=== PATIENT | male | born 1995 | race Hispanic/Latino ===

== ENCOUNTER 2020-01-17 17:52 | Emergency (ER) | payer OTHER, SELFPAY ==
[2020-01-17 18:06] VITALS: BP 117/70; PULSE 82; RESP 15; TEMP 36.6; O2SAT 95; BMI 21.6
--- NOTE | 2020-01-17 18:19 | ED.RECABL ---
HPI - Recheck/Abnormal Lab/Rx General Chief Complaint: Recheck/Abnormal Lab/Rx Stated Complaint: states having medication withdrawls Time Seen by Provider: 01/17/20 18:19 Source: patient Mode of arrival: Ambulatory Limitations: no limitations History of Present Illness HPI narrative: 24-year-old male who is currently on benztropine. States that he ran out of his medication 3 days ago. Tried to contact his provider today for refill however was unable to. Is here for a medication refill. Related Data Previous Rx's Medication Instructions Recorded benztropine 4 mg PO DAILY #30 tab 01/17/20 Allergies Allergy/AdvReac Type Severity Reaction Status Date / Time No Known Drug Allergies Allergy Verified 01/17/20 18:06 Review of Systems Gastrointestinal Gastrointestinal: Denies vomiting Integumentary/Breasts Skin/Breast: Denies rash Psychiatric Psychiatric: Denies homicidal ideation and Denies suicidal ideation Patient History Surgical History No pertinent past surgical history (Acute) Social History Smoking Status: Current every day smoker Smoking Status: Current every day smoker alcohol intake frequency: holidays/special occasions only Substance Use Type: does not use Exam Initial Vital Signs Initial Vital Signs: Vital Signs Temperature 97.9 F 01/17/20 18:06 Pulse Rate 82 01/17/20 18:06 Respiratory Rate 15 01/17/20 18:06 Blood Pressure 117/70 01/17/20 18:06 Pulse Oximetry 95 01/17/20 18:06 Const General: cooperative and comfortable Limitations: mental status not altered Resp Effort & Inspection: normal respiratory effort Skin Lesions: no lesions Rashes: no rashes Neuro General: alert and awake Extrem General: normal to inspection Psych Appearance: grossly normal and well kempt Thought Content: suicidality Course Vital Signs Vital signs: Vital Signs - 8 hr 01/17/20 18:06 Temperature 97.9 F Pulse Rate 82 Respiratory Rate 15 Blood Pressure 117/70 Pulse Oximetry 95 MDM - Recheck/Abnormal Lab/Rx MDM Narrative Medical decision making narrative: Will refill patient's medications. Discharge Plan Departure Patient Disposition: Home Clinical Impression: Encounter for medication refill Discharge Date/Time: 01/17/20 18:27 Activity Restrictions/Additional Instructions: It is important that you keep track of your medications and make sure that you are talking with her primary provider in time for them to refill your medications. Prescriptions: New benztropine 2 mg tablet 4 mg PO DAILY Qty: 30 RF: 0
== END 2020-01-17 18:27 | disposition home or self-care (01) ==
PROVIDERS: Emergency Provider Emergency Medicine
DX: Z76.0 Encounter for issue of repeat prescription (principal)
CPT/HCPCS: 99281

== ENCOUNTER 2020-04-26 14:13 | Emergency (ER) | payer OTHER, SELFPAY ==
[2020-04-26 14:15] VITALS: BP 129/72; PULSE 67; RESP 14; TEMP 37; O2SAT 97
--- NOTE | 2020-04-26 14:29 | ED.PSYCH ---
HPI - Psych General Chief Complaint: Psychiatric Symptoms Stated Complaint: convolsions last night and today Time Seen by Provider: 04/26/20 14:20 Source: patient Mode of arrival: Ambulatory Limitations: no limitations History of Present Illness HPI Narrative: 24M smoker with history of paranoid schizophrenia presents with his mother and a chief complaint of rapidly worsening symptoms for the past 2 days. He is under the care of a prescriber via telemedicine and recently had the addition of Aristrada a few days ago to his antipsychotic regimen. Since this addition the patient complains of significantly worsening paranoia and auditory hallucinations. He states that the hallucinations arm more intense, longer in duration and are telling him to kill himself though he is reluctant to tell me exactly what their instructions are. He denies any homicidal ideation. He does not have a local therapist and only receives care via telemedicine, next appointment is May 24. Additionally, he states that he is having what he describes as tremors or convulsions which are minor and seemed to go away if he focuses but are bothersome than the last period he denies having any medications taken away. MD complaint: suicidal ideation Onset (ago): day(s) Duration: constant History of same: Yes Relieving factors: none Exacerbating factors: medication Context: new medication(s) Associated psychiatric symptoms: suicidal ideation Associated symptoms: other Treatments prior to arrival: none If self harm: admits thoughts of self harm Related Data Home Medications Medication Instructions Recorded Confirmed aripiprazole 20 mg PO DAILY 04/26/20 04/26/20 aripiprazole lauroxil [Aristada] 441 mg IM DIRECTED 04/26/20 04/26/20 haloperidol 5 mg PO BEDTIME 04/26/20 04/26/20 propranolol 40 mg PO BID 04/26/20 04/26/20 sertraline 100 mg PO DAILY 04/26/20 04/26/20 Previous Rx's Medication Instructions Recorded benztropine 4 mg PO DAILY #30 tab 01/17/20 Allergies Allergy/AdvReac Type Severity Reaction Status Date / Time No Known Drug Allergies Allergy Verified 01/17/20 18:06 Review of Systems Constitutional Constitutional: Denies chills, Denies fatigue, Denies fever(s), Denies frequent falls, Denies lethargy and Denies weakness Eyes Eyes: Denies change in vision, Denies eye discharge, Denies irritation and Denies loss of vision ENT Ears, Nose, Mouth, and Throat: Denies change in voice, Denies dizziness, Denies neck pain, Denies sore throat and Denies throat swelling Cardiovascular Cardiovascular: Denies chest pain, Denies irregular heart rhythm, Denies lightheadedness, Denies palpitations, Denies dyspnea, Denies dyspnea on exertion and Denies orthopnea Respiratory Respiratory: Denies cough, Denies dyspnea, Denies dyspnea on exertion and Denies wheezing Gastrointestinal Gastrointestinal: Denies abdominal pain, Denies change in bowel habits, Denies diarrhea, Denies nausea and Denies vomiting Genitourinary Genitourinary: Denies hematuria, Denies flank pain, Denies urinary incontinence and Denies urinary urgency Musculoskeletal Musculoskeletal: Denies back pain, Denies muscle weakness, Denies neck pain, Denies numbness and Denies tingling Integumentary/Breasts Skin/Breast: Denies pruritus, Denies erythema, Denies rash and Denies wounds Neurologic Neurologic: Denies behavioral changes, Denies confusion, Denies dizziness, Denies frequent falls, Denies loss of vision, Denies numbness, Denies tingling and Denies weakness Psychiatric Psychiatric: Denies anxiety, Denies behavioral changes, Denies confusion, Denies depression, Denies homicidal ideation and Reports suicidal ideation Endocrine Endocrine: Denies fatigue, Denies flushing and Denies palpitations Hematologic/Lymphatic Hematologic/Lymphatic: Denies easy bruising Allergic/Immunologic Allergic/Immunologic: Denies urticaria, Denies throat swelling and Denies wheezing Patient History Surgical History No pertinent past surgical history (Acute) Social History Smoking Status: Current some day smoker Smoking Status: Current some day smoker alcohol intake frequency: holidays/special occasions only Substance Use Type: marijuana Exam Narrative Exam Narrative: GENERAL: [24] year old patient appears stated age. Well-nourished, well-developed patient, in mild distress. HEAD: Atraumatic. Normocephalic. EYES: Pupils equal round and reactive. Extraocular motions intact. No scleral icterus. No injection or drainage. ENT: Nose without bleeding, purulent drainage. Throat without erythema, tonsillar hypertrophy or exudate. Airway patent. NECK: Trachea midline. Non tender CARDIOVASCULAR: Regular rate and rhythm without murmurs, gallops, or rubs. RESPIRATORY: Clear to auscultation. Breath sounds equal bilaterally. No wheezes, rales, or rhonchi. GASTROINTESTINAL: Abdomen soft, non-tender, nondistended. EXTREMITIES: No edema or joint tenderness. BACK: Nontender without deformity or crepitance. No flank tenderness. NEURO: AOx3. Mild resting tremor improves with concentration. SKIN: No rash or erythema of visible areas Initial Vital Signs Initial Vital Signs: Vital Signs Temperature 98.6 F 04/26/20 14:15 Pulse Rate 67 04/26/20 14:15 Respiratory Rate 14 04/26/20 14:15 Blood Pressure 129/72 04/26/20 14:15 Pulse Oximetry 97 04/26/20 14:15 Course Orders Ordered: ED Orders 04/26/20 14:29 Urine Drug Screen, Rapid Stat EKG-12 Lead Stat 04/26/20 14:30 Consult to [facility] [employer] [facility] - [facility] [employer] Stat 04/26/20 14:45 Complete Blood Count AUTO DIFF Stat Comprehensive Metabolic Panel Stat Ethanol (ETOH) Stat Thyroid Stimulating Hormone Stat Discontinued Medications Benztropine Mesylate (Cogentin) 1 mg PO NOW ONE Stop: 04/26/20 15:04 Last Admin: 04/26/20 15:10 Dose: 1 mg Documented by: KUSUM Consultations Consultation #1: [facility] has worked closely with [facility] and pending negative COVID swab patient will be accepted at their facility Vital Signs Vital signs: Vital Signs - 8 hr 04/26/20 14:15 Temperature 98.6 F Pulse Rate 67 Respiratory Rate 14 Blood Pressure 129/72 Pulse Oximetry 97 [facility] - Psych Lab Data Result diagrams: 04/26/20 14:45 04/26/20 14:45 Labs: Lab Results 04/26/20 04/26/20 04/26/20 Range/Units 14:45 14:45 14:45 WBC 8.0 (4.5-11.0) X10^3/uL RBC 4.77 (4.5-5.9) X10^6/uL Hgb 15.4 (13.5-17.5) g/dL Hct 44.6 (41-53) % MCV 93.6 (80-100) fL MCH 32.4 (26-34) PG MCHC 34.6 (30-36) % RDW 12.9 (11.6-14.8) % Plt Count 192 (150-400) X10^3/uL Neut % (Auto) 70.1 (50-75) % Lymph % (Auto) 23.8 L (25-40) % [place] % (Auto) 5.7 (3-14) % Eos % (Auto) 0.1 L (2-4) % Baso % (Auto) 0.3 (0-2) % Neut # (Auto) 5600 (3402-9921) /uL Lymph # (Auto) 1900 (9026-2842) /uL [place] # (Auto) 500 (0-900) /uL Eos # (Auto) 0 (0-450) /uL Baso # (Auto) 0 (0-100) /uL Sodium 141 (137-145) mmol/L Potassium 4.3 (3.4-5.1) mmol/L Chloride 104 (98-107) mmol/L Carbon Dioxide 27 (22-32) mmol/L BUN 16 (9-20) mg/dL Creatinine 0.73 (0.66-1.25) mg/dL Estimated GFR > 60.0 (>60) mL/min BUN/Creatinine Ratio 21.9 (6-22) Glucose 93 (70-100) mg/dL Calcium 9.8 (8.4-10.2) mg/dL Total Bilirubin 0.9 (0.2-1.3) mg/dL AST 23 (17-59) IU/L ALT 17 (<50) IU/L Alkaline Phosphatase 70 (38-126) U/L Total Protein 7.9 (6.3-8.2) g/dL Albumin 4.7 (3.5-5.0) g/dL Globulin 3.2 (1.7-4.1) g/dL Albumin/Globulin Ratio 1.5 (1.0-2.8) TSH 0.49 (0.47-4.68) uIU/mL Ethyl Alcohol < 10 ( - 10) mg/dL COVID-19 PCR (Negative) 04/26/20 Range/Units 18:05 WBC (4.5-11.0) X10^3/uL RBC (4.5-5.9) X10^6/uL Hgb (13.5-17.5) g/dL Hct (41-53) % MCV (80-100) fL MCH (26-34) PG MCHC (30-36) % RDW (11.6-14.8) % Plt Count (150-400) X10^3/uL Neut % (Auto) (50-75) % Lymph % (Auto) (25-40) % [place] % (Auto) (3-14) % Eos % (Auto) (2-4) % Baso % (Auto) (0-2) % Neut # (Auto) (8047-2531) /uL Lymph # (Auto) (3202-3331) /uL [place] # (Auto) (0-900) /uL Eos # (Auto) (0-450) /uL Baso # (Auto) (0-100) /uL Sodium (137-145) mmol/L Potassium (3.4-5.1) mmol/L Chloride (98-107) mmol/L Carbon Dioxide (22-32) mmol/L BUN (9-20) mg/dL Creatinine (0.66-1.25) mg/dL Estimated GFR (>60) mL/min BUN/Creatinine Ratio (6-22) Glucose (70-100) mg/dL Calcium (8.4-10.2) mg/dL Total Bilirubin (0.2-1.3) mg/dL AST (17-59) IU/L ALT (<50) IU/L Alkaline Phosphatase (38-126) U/L Total Protein (6.3-8.2) g/dL Albumin (3.5-5.0) g/dL Globulin (1.7-4.1) g/dL Albumin/Globulin Ratio (1.0-2.8) TSH (0.47-4.68) uIU/mL Ethyl Alcohol ( - 10) mg/dL COVID-19 PCR Negative (Negative) MDM Narrative Medical decision making narrative: Given patient's rapidly worsening symptoms and suicidal ideation with the addition of an extremely long-acting medication it seems most reasonable the patient be hospitalized for stabilization of his condition and deep re-evaluation of medications. Discharge Plan Departure Patient Disposition: Xfer Psychiatric Hosp Clinical Impression: Acute psychosis
[2020-04-26 14:55] LABS: Add Manual Diff / Slide Review NO; Basophils Absolute Auto 0 /uL (0-100); Basophils Percent Auto 0.3 % (0-2); Eosinophils Absolute Auto 0 /uL (0-450); Eosinophils Percent Auto 0.1 % (2-4); Hematocrit 44.6 % (41-53); Hemoglobin 15.4 g/dL (13.5-17.5); Lymphocytes Absolute Auto 1900 /uL (1100-4500); Lymphocytes Percent Auto 23.8 % (25-40); Mean Corpuscular HGB Conc 34.6 % (30-36); Mean Corpuscular Hemoglobin 32.4 PG (26-34); Mean Corpuscular Volume 93.6 fL (80-100); Monocytes Absolute Auto 500 /uL (0-900); Monocytes Percent Auto 5.7 % (3-14); Neutrophils Absolute Auto 5600 /uL (1500-7000); Neutrophils Percent Auto 70.1 % (50-75); Platelet Count 192 X10^3/uL (150-400); Red Blood Cell Count 4.77 X10^6/uL (4.5-5.9); Red Cell Distribution Width 12.9 % (11.6-14.8)
[2020-04-26 15:09] LABS: Alanine Aminotransferase 17 IU/L (<50); Albumin 4.7 g/dL (3.5-5.0); Albumin Globulin Ratio 1.5 (1.0-2.8); Alkaline Phosphatase 70 U/L (38-126); Aspartate Aminotransferase 23 IU/L (17-59); BUN Creatinine Ratio 21.9 (6-22); Bilirubin Total 0.9 mg/dL (0.2-1.3); Blood Urea Nitrogen 16 mg/dL (9-20); Calcium 9.8 mg/dL (8.4-10.2); Carbon Dioxide 27 mmol/L (22-32); Chloride 104 mmol/L (98-107); Estimated Glomerular Filt Rate > 60.0 mL/min (>60); Ethanol (ETOH) < 10 mg/dL; Globulin 3.2 g/dL (1.7-4.1); Glucose 93 mg/dL (70-100); HEMOLYSIS < 15 (0-50); Potassium 4.3 mmol/L (3.4-5.1); Sodium 141 mmol/L (137-145); Total Protein 7.9 g/dL (6.3-8.2)
[2020-04-26] MEDS: BENZTROPINE 1 MG TABLET PO (15:10)
--- NOTE | 2020-04-26 15:14 | PC.NURSE ---
Report it feels like he is having a conversation with someone else inside his head all the time. Difficulty to complete tasks. Paranoid.
--- NOTE | 2020-04-26 15:15 | PC.NURSE ---
Wisam ALLISON at bedside. Mother stepped out
[2020-04-26 15:51] LABS: Thyroid Stimulating Hormone 0.49 uIU/mL (0.47-4.68)
[2020-04-26 20:05] LABS: COVID19 -Nasal RAPID Negative (Negative)
--- NOTE | 2020-04-26 20:26 | CM.SWNOTE ---
OPEN WINDER note OPEN W[facility]ER consult requested for patient. Patient is a 24 y/o male who presents to ED for increase in convulsions and suicidal thoughts with plan. Patient received an injection of Aristada roughly 3 days prior to ED visit and states that the onset of symptoms occurred after receiving the shot. [facility]ER meets with patient and completes assessment- see below.OPEN WINDER consults with Dr. Vines, and based on the significant escalation of suicidality following the administration of the injection, inpatient hospitalization is recommended for patient. OPEN W[facility]ER informs patient and mother, who indicate understanding and are agreeable to plan. OPEN WINDER calls [facility] and no beds available. OPEN WINDER calls [facility], and speaks to Barbra. Barbra asks for clinicals, OPEN WINDER faxes clinicals. Barbra calls OPEN W[facility]ER and informs OPEN W[facility]ER is accepted to [facility] for inpatient hospitalization. Details for transfer: Accepting physician Dr. Megan Morrissey, [id number] , Intake contact: Barbra. Enter through ED [address] [facility], [id number]. Empay-cx-Wvydk report requested at time of patient departure. OPEN WINDER informs patient, RN, NUDE MODEL, and Provider. Pl: Patient to transfer to [facility] inpatient for medication stabilization. OPEN WINDER - Grievance Manager Assessment OPEN WINDER - Grievance Manager Assessment Start: 04/26/20 16:19 Freq: Status: Active Protocol: Document 04/26/20 16:19 EDWIN (Rec: 04/26/20 16:51 EDWIN [id number]) OPEN WINDER/Grievance Manager Assessment Time Spent with Patient Start date 04/26/20 Visit Start Time 15:00 End date 04/26/20 Visit End Time 16:20 Total time Care Management spent on 70 patient visit-in minutes Mental Health Screening Include Onset, Duration, Intensity Presenting Problem Patient presents with intense convulsions and sucidial thoughts. Patient states that he feels like he is being told to kill himself, and that he will look at an object and quickly make a plan. Precipitating Event(s) Patient's medication was changed to Aristrada roughly 3 days prior to ED visit. Patient states signficant escalation in convulsions and sucicidal thoughts, plans, following change of medication Current Behavioral Health Provider(s) Dr. Gibbons- psychiatrist- [facility] Include Facility, Provider, Ph. # [facility] Tracy- counselor- Herm[facility]. Hx Mental Health and Chemical Patient was given a diagonsis Dependency of schizophrenia roughly 3 years ago, and has had a diagnosis of anxiety. Patient reports being stable and feeling like I could be normal for roughly 1 year prior to change of medication. Patient currently smokes marijauna 1x daily to help with sleep. Family Hx of Behavioral Abuse None current. Patient reports a 2 weeks period of meth use while with his father in [place] when he was 18. Psychiatric Hospitalizations (date(s)/ Patient was hospitalized for location) 30 days a [facility] roughly 3 years ago. Support System(s) Patient reports his mother is the only person he discusses his hallucinations and behavioral health with. Patient lives with step-father , mother, dog, and two young siblings. Patient describes a safe, but flat relationship with his stepfather. Patient states he feels able to have normal conversations with the neighbor prior to change of meds. 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 Patient has completed high school, and had tried to go to college, but states he doesn' t feel he can due to his memory. Legal Concerns Legal Matters - Outstanding Issues None reported Mental Status Orientation (Person/Place/Time) Oriented x3 Affect Anxious, flat, stable, congruent with mood. Thought Content - Specify/Describe Patient experiences paranoia, Obsessions, Delusions, Hallucinations auditory and visual hallucinations. Patient states there is a voice that tells him to kill himself and to forget things and not do things. Patient states that this voice has told him to harm his family before. Patient states he experiences hallucinations, and describes mostly visual hallucinations. Patient reports halluninating demons and that people will become other objects while he is looking at them (patient provides example of his father becoming a robot from a TV show while he was looking at his father). Patient states that the clock in the room had become a cat during assessment. Thought Processes (Nmlskcw-Tdrwzdwj-Ctnq Mostly coherent, sometimes Yxybvogv-Tlasrbma-Gcrykzdrrs- tangential Nylqlgyaipkdyu-Laxtukt-Rmofhuwrvkeq- Thought Blocking) Speech (Gjfzzu-Tnhc-Heorllb-Rapid-Soft- Slow, soft Loud-Pressured) Motor (Tnjvcw-Ydzoajutb-Zwmr-Other) Excessive Insight (Present-Partially Present- Present Impaired) Judgement (Intact-Impaired) Present Impulse Control (Adequate-Impaired) Impaired Memory (Aqxaziacy-Sgvoko-Jllttw, Impaired x3. Patient expresses Impaired-Intact) difficulty in remembering details and times, and states that voice in his head instructs him to forget details, actions, and commitments made. Concentration (Intact-Impaired) Intact Attention (Intact-Impaired) Impaired Behavior (Appropriate-Inappropriate) Appropriate- patient calm and cooperative throughout visit Additional Comment Due to COVID, patient does not have an appt. with his psychiatrist until 05/24. Risk Assessment Suicidal Ideation (Plan) Yes Homicidal Ideation (Plan) No Comment SI: patient is having thoughts of killing himself and states he is being directed to do so by a voice he hears. Patient states he has had thoughts of hanging himself, jumping out of a window, and bashing [his ] head with a keyboard within the past 24 hours. Patient reports that he declined to stop at [place] on the drive up becuase he was going to jump off of the bridge if he got out of the car. Patient reports previously having thoughts of harming his family. Patient states these never escalated to the point of having a plan, and that he is able to recognize these thoughts as not his own when they arise. Intervention Intervention OPEN WINDER meets with patient. Mother in room with patient initially during assessment, but leaves early in assessment . Patient reports a recent change in his medication and an immediate escalation of uncontrolable convolsions and suicidal thoughts with plan. Patient has had a diagnosis of schizoprenia for roughly 2 years and had been stable for roughly a year prior to change in medication. Patient states that he believes the medication was changed to reduce the number of pills he takes daily. Patient describes care team and home support. Patient currently living with mother, stepfather, young siblings, and dog, and states he feels safe there. Patient is engaged with a psychiatrist and counselor, but is not currently seeking them frequently/ and only by telemedecine due to COVID. Patient states that he felt comforable working and interacting with others prior to changing medication, and says he felt that he was feeling more normal prior to changing medications. Patient states that in last two days he has been feeling increasingly depressed, and says he feels hopeless regarding regaining mental health stability. [facility] W[facility]ER staffs with Dr. Vines. Due to severe escalation of symptoms following change of mediation and complexity of medications, Dr. Vines and OPEN WINDER in agreement that patient requires behavioral health hospitalization for medication management. OPEN WINDER speaks to patient and mother regarding this, and both express agreement and understanding. Plan RA Plan OPEN WINDER will seek behavioral health placement for patient. NA Muhammad
== END 2020-04-26 21:57 ==
PROVIDERS: Emergency Provider Emergency Medicine
DX: R45.851 Suicidal ideations (principal); F23 Brief psychotic disorder; Z11.59 Encounter for screening for other viral diseases; R56.9 Unspecified convulsions
CPT/HCPCS: 36415; 80053; 80320; 84443; 85025; 87635; 93005; 93010; 99284

== ENCOUNTER 2021-01-19 17:38 | Emergency (ER) | payer OTHER, MEDICAID, SELFPAY ==
[2021-01-19 17:45] VITALS: BP 113/74; PULSE 71; RESP 16; TEMP 36.6; O2SAT 99; BMI 25.8
--- NOTE | 2021-01-19 18:03 | ED_ITS ---
HPI - Recheck/Abnormal Lab/Rx General Chief Complaint: Recheck/Abnormal Lab/Rx Stated Complaint: needs someone to give his injection Time Seen by Provider: 01/19/21 18:02 Source: patient Mode of arrival: Ambulatory Limitations: no limitations History of Present Illness HPI narrative: 25-year-old male nonsmoker with history of schizophrenia presents with his mother and chief complaint of needing assistance with a new medication. Due to an insurance change the patient had to switch which antipsychotic he takes and just picked it up from the pharmacy. He and his mother are unsure how to administer the injection and initially presented to an outside facility and were told they could not be helped. They came here for assistance. Patient denies any suicidal or homicidal ideation. He had previously received a different injectable antipsychotic which he last had about 4-5 weeks ago. He routinely has auditory and occasional visual hallucinations which is normal for him. He denies any chest pain or shortness of breath. He has no nausea or vomiting. MD complaint: other Symptoms since prior visit: no new symptoms Related Data Home Medications Medication Instructions Recorded Confirmed aripiprazole 20 mg PO DAILY 04/26/20 04/26/20 aripiprazole lauroxil [Aristada] 441 mg IM DIRECTED 04/26/20 04/26/20 haloperidol 5 mg PO BEDTIME 04/26/20 04/26/20 propranolol 40 mg PO BID 04/26/20 04/26/20 sertraline 100 mg PO DAILY 04/26/20 04/26/20 Previous Rx's Medication Instructions Recorded benztropine 4 mg PO DAILY #30 tab 01/17/20 Allergies Allergy/AdvReac Type Severity Reaction Status Date / Time No Known Drug Allergies Allergy Verified 01/17/20 18:06 Review of Systems Constitutional Constitutional: Denies chills, Denies fatigue, Denies fever(s), Denies frequent falls, Denies lethargy and Denies weakness Eyes Eyes: Denies change in vision, Denies eye discharge, Denies irritation and Denies loss of vision ENT Ears, Nose, Mouth, and Throat: Denies change in voice, Denies dizziness, Denies neck pain, Denies sore throat and Denies throat swelling Cardiovascular Cardiovascular: Denies chest pain, Denies irregular heart rhythm, Denies lighth eadedness, Denies palpitations, Denies dyspnea, Denies dyspnea on exertion and Denies orthopnea Respiratory Respiratory: Denies cough, Denies dyspnea, Denies dyspnea on exertion and Denies wheezing Gastrointestinal Gastrointestinal: Denies abdominal pain, Denies change in bowel habits, Denies diarrhea, Denies nausea and Denies vomiting Musculoskeletal Musculoskeletal: Denies neck pain and Denies numbness Integumentary/Breasts Skin/Breast: Denies pruritus, Denies erythema, Denies rash and Denies wounds Neurologic Neurologic: Denies behavioral changes, Denies confusion, Denies dizziness, Denies frequent falls, Denies loss of vision, Denies numbness and Denies weakness Psychiatric Psychiatric: Denies anxiety, Denies behavioral changes, Denies confusion, Denies depression, Reports auditory hallucinations, Reports visual hallucinations, Denies homicidal ideation and Denies suicidal ideation Endocrine Endocrine: Denies fatigue, Denies flushing and Denies palpitations Hematologic/Lymphatic Hematologic/Lymphatic: Denies easy bruising Allergic/Immunologic Allergic/Immunologic: Denies urticaria, Denies throat swelling and Denies wheezing Patient History Surgical History No pertinent past surgical history Social History Smoking Status: Current some day smoker Smoking Status: Current some day smoker alcohol intake frequency: holidays/special occasions only Substance Use Type: marijuana Exam Narrative Exam Narrative: GEN: AOx3 and in mild distress EYES: Pupils are equal, round, and reactive to light and accommodation. Extraoccular muscles are intact bilaterally. There is no subconjunctival hemorrhage or exudate. CHEST: Lungs are clear to auscultation bilaterally and free of wheezes, rales, or rhonchi. Heart rate is regular rhythm, there are no murmurs, clicks, rubs, or gallops. There is no chest wall tenderness. ABD: Abdomen is soft and nontender. There is no guarding or rebound. Bowel sounds are normal in all 4 quadrants. There is no mass or organomegaly. EXT: Full painless ROM of all extremities with no loss of sensation or strength. SKIN: Warm, pink, and dry. No erythema or rash Initial Vital Signs Initial Vital Signs: Vital Signs Temperature 97.9 F 01/19/21 17:45 Pulse Rate 71 01/19/21 17:45 Respiratory Rate 16 01/19/21 17:45 Blood Pressure 113/74 01/19/21 17:45 Pulse Oximetry 99 01/19/21 17:45 Course Vital Signs Vital signs: Vital Signs - 8 hr 01/19/21 17:45 Temperature 97.9 F Pulse Rate 71 Respiratory Rate 16 Blood Pressure 113/74 Pulse Oximetry 99 MDM - Recheck/Abnormal Lab/Rx MDM Narrative Medical decision making narrative: Patient has a very reassuring story and exam. He only needs assistance and teaching regarding injecting his new medication. Mother and patient have no questions, she videotaped the process with patient's permission to consult should they have questions moving forward. Discharge Plan Departure Patient Disposition: Home Clinical Impression: Medication administered Schizophrenia Qualifiers: Schizophrenia type: unspecified Qualified Code(s): F20.9 - Schizophrenia, unspecified Instructions: DI for Schizophrenia Activity Restrictions/Additional Instructions: *You have been diagnosed with [ need for medication administration ] *What to do: *Continue to take medications as directed *Follow up with your primary care provider in 2-3 days, call for an appointment. Let them know you were seen in the Emergency Department and that we ask that you be seen in follow up *Return to ER if you should have any new, worsening or concerning symptoms Prescriptions: No Action propranolol 40 mg tablet 40 mg PO BID RF: 0 sertraline 100 mg tablet 100 mg PO DAILY RF: 0 aripiprazole 20 mg tablet 20 mg PO DAILY RF: 0 haloperidol 5 mg tablet 5 mg PO BEDTIME RF: 0 Aristada 441 mg/1.6 mL Suspension,Extended Rel Syring 441 mg IM DIRECTED RF: 0 benztropine 2 mg tablet 4 mg PO DAILY Qty: 30 RF: 0
== END 2021-01-19 19:08 | disposition home or self-care (01) ==
PROVIDERS: Emergency Provider Emergency Medicine
DX: Z79.899 Other long term (current) drug therapy (principal); F20.9 Schizophrenia, unspecified
CPT/HCPCS: 99281

== ENCOUNTER 2021-03-28 18:10 | Emergency (ER) | payer OTHER, MEDICAID, SELFPAY ==
[2021-03-28 18:38] VITALS: BP 123/65; PULSE 65; RESP 20; TEMP 36.9; O2SAT 100
--- NOTE | 2021-03-28 18:47 | ED.LOWEXIN ---
HPI - Extremity Injury (Lower) General Chief Complaint: Extremity Injury, Lower Stated Complaint: Hurt Left Lower Leg/Foot Time Seen by Provider: 03/28/21 18:20 Source: patient Mode of arrival: Wheelchair Limitations: no limitations History of Present Illness HPI Narrative: 25-year-old female nonsmoker presents with significant other and a chief complaint of an accidental left ankle injury suffered just prior to arrival. [place] would when a piece rolled and she inverted her left ankle. She now has significant pain and swelling and is unable to ambulate or weight bear. She had been given a walking boot from a friend that fits well and seems to be helping. She denies any numbness, tingling or weakness. MD complaint: ankle injury Onset (ago): minute(s) Injury: Left: ankle Type of Injury: inversion Place: street/outdoors Severity: moderate Relieving factors: immobilization and rest Exacerbating factors: weight bearing Context: fall and walking Associated symptoms: swelling and unable to bear weight Other symptoms: none Treatments prior to arrival: cold therapy and splint Related Data Home Medications Medication Instructions Recorded Confirmed aripiprazole 20 mg PO DAILY 04/26/20 04/26/20 aripiprazole lauroxil [Aristada] 441 mg IM DIRECTED 04/26/20 04/26/20 haloperidol 5 mg PO BEDTIME 04/26/20 04/26/20 propranolol 40 mg PO BID 04/26/20 04/26/20 sertraline 100 mg PO DAILY 04/26/20 04/26/20 Previous Rx's Medication Instructions Recorded benztropine 4 mg PO DAILY #30 tab 01/17/20 Allergies Allergy/AdvReac Type Severity Reaction Status Date / Time No Known Drug Allergies Allergy Verified 01/17/20 18:06 Review of Systems Constitutional Constitutional: Denies chills, Denies fatigue, Denies fever(s), Denies frequent falls, Denies lethargy and Denies weakness Eyes Eyes: Denies change in vision, Denies eye discharge, Denies irritation and Denies loss of vision ENT Ears, Nose, Mouth, and Throat: Denies change in voice, Denies dizziness, Denies neck pain, Denies sore throat and Denies throat swelling Cardiovascular Cardiovascular: Denies chest pain, Denies irregular heart rhythm, Denies lightheadedness, Denies palpitations, Denies dyspnea, Denies dyspnea on exertion and Denies orthopnea Respiratory Respiratory: Denies cough, Denies dyspnea, Denies dyspnea on exertion and Denies wheezing Gastrointestinal Gastrointestinal: Denies abdominal pain, Denies change in bowel habits, Denies diarrhea, Denies nausea and Denies vomiting Musculoskeletal Musculoskeletal: Reports arthralgias, Reports joint swelling, Reports limited range of motion, Denies neck pain and Denies numbness Integumentary/Breasts Skin/Breast: Denies pruritus, Denies erythema, Denies rash and Denies wounds Neurologic Neurologic: Denies behavioral changes, Denies confusion, Denies dizziness, Denies frequent falls, Denies loss of vision, Denies numbness and Denies weakness Psychiatric Psychiatric: Denies anxiety, Denies behavioral changes, Denies confusion, Denies depression, Denies homicidal ideation and Denies suicidal ideation Endocrine Endocrine: Denies fatigue, Denies flushing and Denies palpitations Hematologic/Lymphatic Hematologic/Lymphatic: Denies easy bruising Allergic/Immunologic Allergic/Immunologic: Denies urticaria, Denies throat swelling and Denies wheezing Patient History Surgical History No pertinent past surgical history Social History Smoking Status: Current some day smoker Smoking Status: Current some day smoker alcohol intake frequency: holidays/special occasions only Substance Use Type: marijuana Exam Narrative Exam Narrative: GEN: AOx3 and in mild distress EYES: Pupils are equal, round, and reactive to light and accommodation. Extraoccular muscles are intact bilaterally. There is no subconjunctival hemorrhage or exudate. CHEST: Lungs are clear to auscultation bilaterally and free of wheezes, rales, or rhonchi. Heart rate is regular rhythm, there are no murmurs, clicks, rubs, or gallops. There is no chest wall tenderness. ABD: Abdomen is soft and nontender. There is no guarding or rebound. Bowel sounds are normal in all 4 quadrants. There is no mass or organomegaly. EXT: Decreased range of motion secondary to pain of left ankle with primary point of tenderness and swelling over lateral malleolus, no ligamentous instability, there is noted swelling and ecchymosis distal to the malleolus. This is closed, isolated and neurovascularly intact. SKIN: Warm, pink, and dry. No erythema or rash Initial Vital Signs Initial Vital Signs: Vital Signs Temperature 98.4 F 03/28/21 18:38 Pulse Rate 65 03/28/21 18:38 Respiratory Rate 20 03/28/21 18:38 Blood Pressure 123/65 03/28/21 18:38 Pulse Oximetry 100 03/28/21 18:38 Course Orders Ordered: ED Orders 03/28/21 18:46 XR ankle LT min 3V Stat Vital Signs Vital signs: Vital Signs - 8 hr 03/28/21 21:03 Pulse Rate 69 Respiratory Rate 16 Blood Pressure 122/66 Pulse Oximetry 98 MDM - Extremity Injury (Lower) Imaging Data Extremity x-ray #1: Radiologist's Impression: [address] [id number] ReportSigned Patient: Raffy Schmitz [facility]#: [id number]: 1995Acct:[id number]/Sex: 25 / MDate of Service: 03/28/21Loc: EDAccession Number: [id number] Procedure: XR ankle LT min 3V Ordering Provider: Nader Vines D.O. PROCEDURE: XR ANKLE LT MIN 3V INDICATIONS: pain/swelling twisting injury TECHNIQUE: 3 views of the ankle were acquired. COMPARISON: None. FINDINGS: Bones: No fractures or dislocations. Ankle mortise is normally aligned. No suspicious bony lesions. Soft tissues: No tibiotalar joint effusion. Achilles tendon appears normal. Soft tissue swelling over the lateral malleolus. IMPRESSION: No fracture or dislocation. Soft tissue swelling over the lateral malleolus. Dictated by: Jody Gustafson M.D. on 03/28/2021 at 19:26 Approved by: Jody Gustafson M.D. on 03/28/2021 at 19:30 Discharge Plan Departure Patient Disposition: Home Clinical Impression: Ankle sprain and strain Instructions: Ankle Sprain Activity Restrictions/Additional Instructions: *You have been diagnosed with [severe ankle sprain, likely of the anterior talofibular ligament. no evidence of fracture] *What to do: *Take medications as directed *Follow up with [facility] in 2-3 days, call for an appointment. Let them know you were seen in the Emergency Department and that we ask that you be seen in follow up * no weight-bearing until follow-up *Return to ER if you should have any new, worsening or concerning symptoms, such as [increasing pain, numbness, tingling, weakness] Prescriptions: No Action propranolol 40 mg tablet 40 mg PO BID RF: 0 sertraline 100 mg tablet 100 mg PO DAILY RF: 0 aripiprazole 20 mg tablet 20 mg PO DAILY RF: 0 haloperidol 5 mg tablet 5 mg PO BEDTIME RF: 0 Aristada 441 mg/1.6 mL Suspension,Extended Rel Syring 441 mg IM DIRECTED RF: 0 benztropine 2 mg tablet 4 mg PO DAILY Qty: 30 RF: 0 Referrals: Ramos Tracy MD [Physician] -
[2021-03-28 21:03] VITALS: BP 122/66; PULSE 69; RESP 16; O2SAT 98
== END 2021-03-28 21:04 | disposition home or self-care (01) ==
PROVIDERS: Emergency Provider Emergency Medicine
DX: S93.402A Sprain of unspecified ligament of left ankle, initial encounter (principal); S96.912A Strain of unspecified muscle and tendon at ankle and foot level, left foot, initial encounter; W19.XXXA Unspecified fall, initial encounter
CPT/HCPCS: 73610; 99282; 99283

== ENCOUNTER 2021-09-22 12:36 | Emergency (ER) | payer OTHER, MEDICAID, SELFPAY ==
[2021-09-22 12:56] VITALS: BMI 24.2
[2021-09-22 13:30] VITALS: BP 98/60; PULSE 90; O2SAT 100
[2021-09-22 13:41] LABS: COVID19 -Nasal RAPID Negative (Negative)
--- NOTE | 2021-09-22 13:45 | ED_ITS ---
HPI - Recheck/Abnormal Lab/Rx <JAYME Max - Last Filed: 09/22/21 19:27> General Chief Complaint: Recheck/Abnormal Lab/Rx Stated Complaint: Needs Covid test- close exposure Time Seen by Provider: 09/22/21 13:06 Source: patient Mode of arrival: Family Vehicle Limitations: no limitations History of Present Illness HPI narrative: 26-year-old male was brought in with family for COVID testing today, patient's mother tested positive for COVID this morning. He is vaccinated for COVID and has been asymptomatic, has been in contact with his mother recently. his COVID test was negative, discussed avoiding contact with known positive person's and sinus and symptoms to look out for if he were to become positive. Patient is appropriate and amenable to discharge home. Vital signs are stable on repeat examination is unremarkable. Patient has been informed of results. Patient has been given strict return to ER precautions for any new or worsening symptoms. Patient understands to follow up closely with outpatient providers as instructed. Patient understands plan and agrees to discharge home. All questions and concerns answered at this time. Related Data Home Medications Medication Instructions Recorded Confirmed aripiprazole lauroxil 441 mg/1.6 441 mg IM DIRECTED 04/26/20 04/09/21 mL suspension, ext.rel. IM syringe (Aristada) propranolol 40 mg tablet 40 mg PO BID 04/26/20 04/09/21 sertraline 100 mg tablet 100 mg PO DAILY 04/26/20 04/09/21 Previous Rx's Medication Instructions Recorded benztropine 2 mg tablet 4 mg PO DAILY #30 tab 01/17/20 Allergies Allergy/AdvReac Type Severity Reaction Status Date / Time No Known Drug Allergies Allergy Verified 09/23/21 08:42 Review of Systems <JAYME Max - Last Filed: 09/22/21 19:27> Review of Systems Narrative: General: denies fever, chills Head/Neck: denies headache, neck pain Eyes: denies visual changes, eye pain Cardio: denies chest pain, palpitations Respiratory: denies shortness of breath, cough GI: denies abdominal pain, nausea, vomiting, or diarrhea : denies dysuria, hematuria MSK: denies joint pain, muscle weakness Skin: denies rash, itching Neuro: denies numbness, tingling Patient History <JAYME Max - Last Filed: 09/22/21 19:27> Medical History Schizo affective schizophrenia Surgical History No pertinent past surgical history Social History (System 09/23/21 @ 08:42 by Lady Roselia Pineda) Smoking Status: Never smoker Smoking Status: Never smoker alcohol intake frequency: 0-2 drinks per day Substance Use Type: does not use Exam <JAYME Max - Last Filed: 09/22/21 19:27> Narrative Exam Narrative: Independently reviewed vitals signs and nursing notes. General: Awake, alert, nontoxic, no cardiorespiratory distress Head/Neck: Atraumatic, neck full range of motion Eyes: EOMI, conjunctiva normal Nose: nares patent, no rhinorrhea Mouth/Throat: moist mucus membranes, posterior pharynx normal, no oral lesions Cardio: Regular rate and rhythm, no peripheral edema Respiratory: respirations unlabored without wheezing, stridor, or rales. No retractions. GI: Abdomen soft, nontender MSK: Moves all extremities, neurovascularly intact Skin: Normal capillary refill, no rash Neuro: Normal speech and cognition, normal gait Initial Vital Signs Initial Vital Signs: Vital Signs Pulse Rate 90 09/22/21 13:30 Blood Pressure 98/60 09/22/21 13:30 Pulse Oximetry 100 09/22/21 13:30 <Martha Sandy DO - Last Filed: 09/23/21 19:16> Initial Vital Signs Initial Vital Signs: Vital Signs Pulse Rate 90 09/22/21 13:30 Blood Pressure 98/60 09/22/21 13:30 Pulse Oximetry 100 09/22/21 13:30 Course <JAYME Max - Last Filed: 09/22/21 19:27> Orders Ordered: ED Orders 09/22/21 13:11 COVID19 -Nasal swab/Pre-Proc Stat Vital Signs Vital signs: Vital Signs - 8 hr 09/22/21 13:30 Pulse Rate 90 Blood Pressure 98/60 Pulse Oximetry 100 <Martha Sandy DO - Last Filed: 09/23/21 19:16> Orders Ordered: ED Orders 09/22/21 13:11 COVID19 -Nasal swab/Pre-Proc Stat Vital Signs Vital signs: Vital Signs - 8 hr 09/22/21 13:30 Pulse Rate 90 Blood Pressure 98/60 Pulse Oximetry 100 MDM - Recheck/Abnormal Lab/Rx <JAYME Max - Last Filed: 09/22/21 19:27> Lab Data Labs: Lab Results 09/22/21 Range/Units 13:11 SARS-CoV-2 (PCR) Negative (Negative) [facility] Narrative Medical decision making narrative: 26-year-old malepresenting to the emergency department with known exposure to COVID, he is vaccinated, and presents for COVID testing today. His COVID test was negative. He is symptom-free, nontoxic appearing, denies a headache, change in smell, sore throat, fever, cough, shortness of breath or GI symptoms, Patient is appropriate and amenable to discharge home. Vital signs are stable on repeat examination is unremarkable. Patient has been informed of results. Patient has been given strict return to ER precautions for any new or worsening symptoms. Patient understands to follow up closely with outpatient providers as instructed. Patient understands plan and agrees to discharge home. All questions and concerns answered at this time. <Martha Sandy DO - Last Filed: 09/23/21 19:16> Lab Data Labs: Lab Results 09/22/21 Range/Units 13:11 SARS-CoV-2 (PCR) Negative (Negative) Discharge Plan Departure Patient Disposition: Home Clinical Impression: COVID-19 ruled out by laboratory testing Activity Restrictions/Additional Instructions: *You have been diagnosed with not having COVID. You have all tested negative for COVID today, that is great news. Please limit your exposure to people you know with COVID. *What to do: *Please continue to take your regular medications as directed. [ ] New medication prescriptions sent to your pharmacy: [ ] [ ] New medication written as a paper prescription [x ] No new medications given *Please follow up with your primary care provider in 2-3 days, call for an appointment. Let them know you were seen in the Emergency Department and that we ask that you be seen in follow up. We will electronically transmit a record of today's note if your PCP is in our system *If you do not have a primary care provider please contact the [facility] Resource line at [phone]. They will ask some questions about your medical history and help get you set up with a doctor in the community. *Return to Emergency Department if you should have any new, worsening or concerning symptoms, such as [fever greater than 101F, chills, worsening pain, persistent vomiting or other bothersome symptoms] Prescriptions: No Action propranolol 40 mg tablet 40 mg PO BID RF: 0 sertraline 100 mg tablet 100 mg PO DAILY RF: 0 Aristada 441 mg/1.6 mL Suspension,Extended Rel Syring 441 mg IM DIRECTED RF: 0 benztropine 2 mg tablet 4 mg PO DAILY Qty: 30 RF: 0 <Martha Sandy, DO - Last Filed: 09/23/21 19:16> Cosign ED Attending Kenature Attestation: I was immediately available in the department for consultation. Documentation has been reviewed.
== END 2021-09-22 14:00 | disposition home or self-care (01) ==
PROVIDERS: Emergency Medicine; Emergency Provider Nurse Practitioner Critical Care Medicine
DX: Z20.822 Contact with and (suspected) exposure to COVID-19 (principal)
CPT/HCPCS: 87635; 99282; C9803